=== PATIENT | male | born 1955 | race Caucasian/White ===

== ENCOUNTER 2016-12-09 09:28 | Emergency (ER) | payer OTHER ==
[~2016-12-09] VITALS: Ht 180.3 cm; Wt 72.6 kg
[2016-12-09] MEDS ORDERED: BREO ELLIPTA I1 EACH INH (09:43)
[2016-12-09] MEDS ORDERED: NOVOLOG FL100 UNIT/1 SUB-Q (09:43)
[2016-12-09] MEDS ORDERED: GLUCOPHAGE XR750 MG PO (09:44)
[2016-12-09] MEDS ORDERED: NOVOLIN N100 UNIT/1 SUB-Q (09:44)
[2016-12-09] MEDS ORDERED: LANTUS100 UNITS/ SUB-Q (10:09)
[2016-12-09] MEDS ORDERED: DIOVAN320 MG PO (10:10)
[2016-12-09] MEDS ORDERED: INVOKANA100 MG PO (10:11)
[2016-12-09] MEDS ORDERED: HYDROCHLOROTH12.5 MG PO (10:11)
[2016-12-09] MEDS ORDERED: ZITHROMAX250 MG PO (10:49)
[2016-12-09] MEDS ORDERED: PREDNISONE20 MG PO (10:49)
--- NOTE | 2016-12-10 13:01 | EKG ---
[facility] [address] [facility] [place] [address] Signed Sinus tachycardia Otherwise normal ECG No previous ECGs available Confirmed by MICHAEL TERRELL MD ([id number]) on 12/10/2016 1:01:42 PM Electronically Signed By: MICHAEL TERRELL MD 12/10/16 1301 PATIENT NAME: MAMTA CASTREJON Electrocardiogram DATE OF : 57 PHYSICIAN: MICHAEL TERRELL MD REPORT #: [id number] REPORT IS CONFIDENTIAL AND NOT TO BE RELEASED WITHOUT AUTHORIZATION
== END 2016-12-09 11:20 | disposition home or self-care (01) ==
LOC: ED 09:28
DX: J44.1 Chronic obstructive pulmonary disease with (acute) exacerbation (principal); E11.9 Type 2 diabetes mellitus without complications; F17.200 Nicotine dependence, unspecified, uncomplicated; Z79.4 Long term (current) use of insulin; Z79.899 Other long term (current) drug therapy; Z79.84 Long term (current) use of oral hypoglycemic drugs
CPT/HCPCS: 71010; 80053; 83735; 84484; 85025; 93005; 93010; 94640; 96374; 99284; J2930

== ENCOUNTER 2017-07-09 07:30 | Day surgery (SDC) | payer OTHER ==
[~2017-07-09] VITALS: Ht 180.3 cm; Wt 75.8 kg
[~2017-07-09 07:30] MED LIST: ASPIR 8181 MG PO; BREO ELLIPTA I1 EACH INH; C-10001000 MG PO; COMBIVENT RESPIM4 GM INH; DIOVAN320 MG PO; GLUCOPHAGE XR750 MG PO; GLUCOPHAGE500 MG PO; HYDROCHLOROTH12.5 M1 PO; HYDROCHLOROTH12.5 MG PO; INVOKANA100 MG PO; INVOKANA300 MG PO; L-LYSINE500 M1 PO; LANTUS100 UNITS/ SUB-Q; NORVASC5 MG PO; NOVOLIN N100 UNIT/1 SUB-Q; NOVOLOG FL100 UNIT/1 SUB-Q; NOVOLOG100 UNIT/1 SUB-Q; PREDNISONE20 MG PO; PSEUDOEPHEDRINE30 MG PO; SYMBICORT 16010.2 GM INH; TRESIBA FL100 UNIT/1 SQ; VALSARTAN320 MG PO; VENTOLIN HFA18 GM INH; ZITHROMAX250 MG PO
[2017-07-09] MEDS ORDERED: LANTUS100 UNITS/ (07:54)
[2017-07-09] MEDS ORDERED: UTIBRON (07:55)
--- NOTE | 2017-07-09 09:27 | NUR ---
07/09/17 0927 Drew He MD AT BEDSIDE REVIEWING PROCEDURE WITH PT. CONTINUES TO DENY NAUSEA OR PAIN.
--- NOTE | 2017-07-10 13:58 | OR ---
[facility] [address] [place], [place] [address] Signed DATE OF OPERATION: 07/09/2017 SURGEON: Hemal Horton MD PREOPERATIVE DIAGNOSIS: Colon screening. POSTOPERATIVE DIAGNOSES: 1. Small polyp at 25 cm (excised). 2. Internal hemorrhoids. PROCEDURE: Total colonoscopy to cecum with cold morcellation polypectomy x1. ANESTHESIA: Intravenous sedation, fentanyl 100 mcg, Versed 10 mg. INDICATION: This 62-year-old white man is a patient of Dr. Myers, formally Dr. Jimenez, who is known to have insulin-dependent diabetes mellitus. He last underwent colonoscopy in 2009. He has no symptoms currently and has no family history of colon cancer. He was admitted to undergo colonoscopy. He understands the risks of bleeding, infection, perforation. Findings of prep was good. Complete colonoscopy was undertaken of the cecum. There was a small polyp at 25 cm, which was excised with cold morcellation technique. Retroflexed view confirmed internal hemorrhoidal changes as well. DESCRIPTION OF PROCEDURE: The patient was brought to the endoscopy suite and placed in lateral decubitus position and given intravenous sedation to the point of slurred speech and nystagmus. Digital rectal examination was normal. An Olympus video colonoscope was passed in the rectum and manipulated throughout the colon ultimately intubating the cecum itself. Irrigation was undertaken as needed. The ileocecal valve and appendiceal orifice were normal. The scope was withdrawn from that point. Examination of the colon upon withdrawal of scope showed no sign of abnormality until approximately 25 cm from the anal verge where a small sessile polyp was noted. Narrow band imaging confirmed the polyp likely to be adenomatous. Multiple bites with the morcellation device were used to excise the polyp and sent for pathology. The scope was further withdrawn and retroflexed view in the rectum undertaken showing sizable internal hemorrhoidal changes, but no evidence of bleeding, fissure, or other Electronically Signed By: HEMAL HORTON MD 07/10/17 1358 PATIENT NAME: MAMTA CASTREJON OPERATIVE REPORT DATE OF : 57 REPORT #: [id number] PHYSICIAN: HEMAL HORTON MD PCP: LEFTY MYERS MD REPORT IS CONFIDENTIAL AND NOT TO BE RELEASED WITHOUT AUTHORIZATION [facility] [address] [place], [place] [address] Signed abnormality. The scope was straightened, withdrawn, and removed. The patient was taken to recovery room in good condition. CONCLUDING DIAGNOSIS: 1. Polyp at 25 cm. 2. Internal hemorrhoids. PLAN: Recommend high-fiber diet or Citrucel 1 tablespoon daily. We would recommend repeat colonoscopy in 3 years based on the polyp found, sooner if symptoms should occur. MD ONEIDA Pascal/LOAN /[id number] cc: Lefty Myers MD Copies: LEFTY MYERS MD ~ Electronically Signed By: HEMAL HORTON MD 07/10/17 1358 PATIENT NAME: MAMTA CASTREJON OPERATIVE REPORT DATE OF : 57 REPORT #: [id number] PHYSICIAN: HEMAL HORTON MD PCP: LEFTY MYERS MD REPORT IS CONFIDENTIAL AND NOT TO BE RELEASED WITHOUT AUTHORIZATION
== END 2017-07-09 09:50 | disposition home or self-care (01) ==
LOC: DS 07:30 → OPS 07:30 → DS 08:30 → OPS 08:30
PROVIDERS: Surgery
PROC: 0DBE8ZX Excision of Large Intestine, Via Natural or Artificial Opening Endoscopic, Diagnostic (ICD-10-PCS; principal; 2017-07-09 08:30)
DX: Z12.11 Encounter for screening for malignant neoplasm of colon (principal); D12.6 Benign neoplasm of colon, unspecified; K64.8 Other hemorrhoids; J44.9 Chronic obstructive pulmonary disease, unspecified; E11.9 Type 2 diabetes mellitus without complications; K21.9 Gastro-esophageal reflux disease without esophagitis; E78.00 Pure hypercholesterolemia, unspecified; Z98.890 Other specified postprocedural states; Z87.891 Personal history of nicotine dependence
CPT/HCPCS: 99153; G0500; J2250; J3010; J7120

== ENCOUNTER 2019-08-14 16:13 | Emergency (ER) | payer OTHER ==
[~2019-08-14] VITALS: Ht 180.3 cm; Wt 77.3 kg
--- OUTSIDE RECORDS SUMMARY | ~2019-08-14 | XMS | Encounter Summary ---
Demographics + + + | Address | [address] | | | [place] [address] | + + + | Home Phone | | + + + | Preferred Language | Unknown | + + + | Marital Status | Unknown | + + + | Jehovah'S Witness Affiliation | Unknown | + + + | Race | Unknown | + + + | Ethnic Group | Unknown | + + + Author + + + | Author | [facility] | | | and [place] | + + + | Organization | [facility] | | | and [place] | + + + | Address | Unknown | + + + | Phone | Unavailable | + + + Care Team Providers + +------+ + | Care Plate Drying Machine Tender Name | Role | Phone | + +------+ + PCP | Unavailable | + +------+ + Encounter Details +--------+ + + + + | Date | Type | Department | Care Team | Description | +--------+ + + + + | 05/18/ | Hospital | [facility] | Nain Amaro | | | 2011 | Encounter | MED CTR XRAY [address] | | | | | [place] | [place], [place] | | | | | [place] [address] | [id number] | | | | | [phone] | [phone] | | | | | | | | +--------+ + + + + Social History + +-------+ +--------+------+ | Tobacco Use | Types | Packs/Day | Years | Date | | | | | Used | | + +-------+ +--------+------+ | Never Assessed | | | | | + +-------+ +--------+------+ + + + | Sex Assigned at | Date Recorded | | | | + + + | Not on file | | + + + + + + + | Job Start Date | Occupation | Industry | + + + + | Not on file | Not on file | Not on file | + + + + + + + + | Travel History | Travel Start | Travel End | + + + + + + | No recent travel history available. | + + documented as of this encounter Plan of Treatment Not on filedocumented as of this encounter Procedures + +--------+ + + + | Procedure Name | Priori | Date/Time | Associated Diagnosis | Comments | | | ty | | | | + +--------+ + + + | XR CERVICAL SPINE 2 | | 05/18/2011 | | Results for this | | OR 3 VIEWS | | 2:29 PM | | procedure are in the | | | | PST | | results section. | + +--------+ + + + documented in this encounter Results XR Cervical Spine 3 Vws or Less (05/18/2011 2:29 PM PST) + + | Specimen | + + | | + + + + + | Narrative | Performed At | + + + | [facility] Diagnostic Imaging Department | [facility] | | [address] [facility] | [facility] | | CERVICAL SPINE CLINICAL | DIAG IMG | | HISTORY: NECK PAIN. FINDINGS: AP, lateral and lateral flexion | | | and extension views of the cervical spine are reviewed. Sagittal | | | alignment is normal and the spine is imaged to the C7 level. No | | | fracture or destructive charly nge is seen. The disk interspaces are | | | relatively well-maintained with just a small amount of soft ti ssue | | | calcification in the anterior longitudinal ligament at C4-5. Facet | | | joints appear normally align ed. Minimal uncinate hypertrophy is | | | suggested. A small amount of calcification is present in the ri ght | | | carotid. Alignment is maintained within the normal range in both | | | flexion and extension. IMPRESSION: 1. NO RADIOGRAPHIC | | | DEMONSTRATION OF INSTABILITY. NORMAL PLAIN FILM EVALUATION OF THE | | | CERVICAL SPINE FOR AGE. Dictated Date/Time: 05/18/2011 16:40 | | | Transcribed Date/Time: 05/18/2011 16:49 End Packer: | | | <Electronically Signed by Lorne Jackson MD> 05/18/11 2153 | | + + + + + | Procedure Note | + + | Nakul, Rad Conversion - 2013 4:38 PM [facility] | | Diagnostic Imaging Department [address] [place] [address] | | CERVICAL SPINE CLINICAL HISTORY: NECK PAIN. FINDINGS: | | AP, lateral and lateral flexion and extension views of the cervical spine are reviewed. | | Sagittal alignment is normal and the spine is imaged to the C7 level. No fracture or | | destructive change is seen. The disk interspaces are relatively well-maintained with | | just a small amount of soft tissue calcification in the anterior longitudinal ligament | | at C4-5. Facet joints appear normally aligned. Minimal uncinate hypertrophy is | | suggested. A small amount of calcification is present in the right carotid. Alignment | | is maintained within the normal range in both flexion and extension. IMPRESSION: 1. NO | | RADIOGRAPHIC DEMONSTRATION OF INSTABILITY. NORMAL PLAIN FILM EVALUATION OF THE CERVICAL | | SPINE FOR AGE. Dictated Date/Time: 05/18/2011 16:40Transcribed Date/Time: 05/18/2011 | | 16:49Transcriptionist: <Electronically Signed by Lorne Jackson MD> 05/18/11 | | 3 | |ssue calcification in the anterior longitudinal ligament at C4-5. Facet joints appear norm ally align | |ed. Minimal uncinate hypertrophy is suggested. A small amount of calcification is present in the ri | |ght carotid. | | | |Alignment is maintained within the normal range in both flexion and extension. | | | |IMPRESSION: | |1. NO RADIOGRAPHIC DEMONSTRATION OF INSTABILITY. NORMAL PLAIN FILM EVALUATION OF THE CERV ICAL SPINE | | FOR AGE. | | | |Dictated Date/Time: 05/18/2011 16:40 | |Transcribed Date/Time: 05/18/2011 16:49 | |End Packer: | |<Electronically Signed by Lorne Jackson MD> 05/18/113 | + + + +---------+ + + | Performing | Address | City/State/Zipcode | Phone Number | | Organization | | | | + +---------+ + + | [facility] | | | | | [place] | | | | + +---------+ + + documented in this encounter Visit Diagnoses Not on filedocumented in this encounter"
--- OUTSIDE RECORDS SUMMARY | ~2019-08-14 | XMS | Clinical Summary ---
Demographics + + + | Address | [address] | | | [place] [address] | + + + | Home Phone | | + + + | Preferred Language | Unknown | + + + | Marital Status | | + + + | Druze Affiliation | Unknown | + + + | Race | Unknown | + + + | Ethnic Group | Unknown | + + + Author + + + | Author | [employer] [facility] (Historical as of | | | 12-07-18) | + + + | Organization | [facility] (Historical as of | | | 12-07-18) | + + + | Address | Unknown | + + + | Phone | Unavailable | + + + Support + + +---------+ + | Name | Relationship | Address | Phone | + + +---------+ + | Tinhof,Hector | ECON | Unknown | | + + +---------+ + Care Team Providers + +------+ + | Care Environmental Health Technician Name | Role | Phone | + +------+ + | Lefty Myers MD | PP | | + +------+ + Allergies + + + + + + | Active Allergy | Reactions | Severity | Noted | Comments | | | | | Date | | + + + + + + | Atorvastatin | Muscle Pain | | 08/15/19 | | | | | | 18 | | + + + + + + | Insulin Degludec | Itching | Medium | 08/15/19 | That Tresiba | | | | | 18 | | + + + + + + Current Medications + + +-------+---------+------+------+-------+ | Prescription | Sig. | Disp. | Refills | Star | End | Statu | | | | | | t | Date | s | | | | | | Date | | | + + +-------+---------+------+------+-------+ | aspirin 81 MG EC | Take 1 tablet by | | | | | Activ | | tablet | mouth daily. | | | | | e | + + +-------+---------+------+------+-------+ | LANTUS SOLOSTAR | Inject 15 Units as | | | 04/0 | | Activ | | 100 UNIT/ML | directed daily. | | | 5/20 | | e | | injection | | | | 18 | | | + + +-------+---------+------+------+-------+ | VENTOLIN HFA 108 | Inhale 2 puffs into | | | 04/1 | | Activ | | (90 Base) MCG/ACT | the lungs every 4 | | | 5/20 | | e | | inhaler | (four) hours as | | | 18 | | | | | needed. | | | | | | + + +-------+---------+------+------+-------+ | amLODIPine | Take 5 mg by mouth | | | | | Activ | | (NORVASC) 5 MG | daily. | | | | | e | | tablet | | | | | | | + + +-------+---------+------+------+-------+ | INVOKANA 300 MG | Take 300 mg by mouth | | | 03/2 | | Activ | | tablet | daily. | | | 5/20 | | e | | | | | | 18 | | | + + +-------+---------+------+------+-------+ | ascorbic acid | Take 1,000 mg by | | | | | Activ | | (VITAMIN C) 1000 MG | mouth daily. | | | | | e | | tablet | | | | | | | + + +-------+---------+------+------+-------+ | | Take 12.5 mg by | | | 03/2 | | Activ | | hydrochlorothiazide | mouth daily. | | | 5/20 | | e | | (HYDRODIURIL) 12.5 | | | | 18 | | | | MG tablet | | | | | | | + + +-------+---------+------+------+-------+ | NOVOLOG FLEXPEN | Inject 6 Units as | | | 04/1 | | Activ | | 100 UNIT/ML | directed 3 (three) | | | 6/20 | | e | | injection | times daily. | | | 18 | | | + + +-------+---------+------+------+-------+ | metFORMIN | Take 500 mg by mouth | | | | | Activ | | (GLUCOPHAGE) 500 MG | 3 (three) times | | | | | e | | tablet | daily. | | | | | | + + +-------+---------+------+------+-------+ | Multiple | Take 1 tablet by | | | | | Activ | | Vitamins-Minerals | mouth daily. | | | | | e | | (CENTRUM SILVER) | | | | | | | | tablet | | | | | | | + + +-------+---------+------+------+-------+ | Lysine 500 MG TABS | Take 500 mg by mouth | | | | | Activ | | | daily. | | | | | e | + + +-------+---------+------+------+-------+ | SUDOGEST 12 HOUR | Take 120 mg by mouth | | 0 | 04/1 | | Activ | | 120 MG 12 hr tablet | every 12 (twelve) | | | 7/20 | | e | | | hours as needed. | | | 18 | | | + + +-------+---------+------+------+-------+ | valsartan (DIOVAN) | Take 320 mg by mouth | | | | | Activ | | 320 MG tablet | daily. | | | | | e | + + +-------+---------+------+------+-------+ | INCRUSE ELLIPTA | Inhale 1 puff into | | | 04/1 | | Activ | | 62.5 MCG/INH inhaler | the lungs daily. | | | 2/20 | | e | | | | | | 18 | | | + + +-------+---------+------+------+-------+ | | Inhale 2 puffs into | | | | | Activ | | budesonide-formotero | the lungs 2 (two) | | | | | e | | l (SYMBICORT) | times daily. | | | | | | | 160-4.5 MCG/ACT | | | | | | | | inhaler | | | | | | | + + +-------+---------+------+------+-------+ | Magnesium 250 MG | Take 250 mg by mouth | | | | | Activ | | TABS tablet | daily. | | | | | e | + + +-------+---------+------+------+-------+ | Cholecalciferol | Take 5,000 Units by | | | | | Activ | | (VITAMIN D3) 5000 | mouth daily. | | | | | e | | units CAPS | | | | | | | + + +-------+---------+------+------+-------+ Active Problems + + + | Problem | Noted Date | + + + | Tobacco abuse | | + + + | Hyperlipidemia | | + + + + + | Overview: mixed, intolerant of simvastatin and a atorvastatin | | due to myalgias | + + Family History + + +------+ + | Medical History | Relation | Name | Comments | + + +------+ + | Diabetes type I | Brother | | | + + +------+ + | Diabetes type I | Brother | | | + + +------+ + | Congestive Heart | Father | | | | Failure | | | | + + +------+ + | Coronary art dis | Father | | | + + +------+ + | Diabetes type I | Father | | | + + +------+ + | Congestive Heart | Mother | | | | Failure | | | | + + +------+ + + +------+ + + | Relation | Name | Status | Comments | + +------+ + + | Brother | | Alive | | + +------+ + + | Brother | | Alive | | + +------+ + + | Father | | | | | | | (Age | | | | | 65) | | + +------+ + + | Mother | | | | | | | (Age | | | | | 87) | | + +------+ + + | Son | | Alive | | + +------+ + + Social History + +-------+ +--------+ + | Tobacco Use | Types | Packs/Day | Years | Date | | | | | Used | | + +-------+ +--------+ + | Former Smoker | | 1.5 | 25 | Quit: 04/15/2017 | + +-------+ +--------+ + + +---+---+---+ | Smokeless Tobacco: | | | | | Former User | | | | + +---+---+---+ + + +---------+ + | Alcohol Use | Drinks/We | oz/Week | Comments | | | ek | | | + + +---------+ + | No | | | | + + +---------+ + + + + | Sex Assigned at | Date Recorded | | | | + + + | Not on file | | + + + Last Filed Vital Signs + + + + | Vital Sign | Reading | Time Taken | + + + + | Blood Pressure | 122/68 | 08/14/2017 3:08 PM PDT | + + + + | Pulse | 86 | 08/14/2017 2:49 PM PDT | + + + + | Temperature | - | - | + + + + | Respiratory Rate | - | - | + + + + | Oxygen Saturation | 97% | 08/14/2017 2:49 PM PDT | + + + + | Inhaled Oxygen | - | - | | Concentration | | | + + + + | Weight | 75.5 kg (166 lb 8 | 08/14/2017 2:49 PM PDT | | | oz) | | + + + + | Height | 177.8 cm (5' 10") | 08/14/2017 2:49 PM PDT | + + + + | Body Mass Index | 23.89 | 08/14/2017 2:49 PM PDT | + + + + Plan of Treatment + + + + + | Health Maintenance | Due Date | Last Done | Comments | + + + + + | Vaccine: | | | | | Dtap/Tdap/Td (1 - | 6 | | | | Tdap) | | | | + + + + + | Colon Cancer | | | | | Screening | 7 | | | | (Colonoscopy) | | | | + + + + + | Vaccine: Zoster (1 | | | | | of 2) | 7 | | | + + + + + | Lung Cancer | | | | | Screening | 2 | | | + + + + + | Vaccine: Influenza | | | | | (Season Ended) | 0 | | | + + + + + Results Not on filefrom Last 3 Months Insurance + +--------+ +------+-------+---------+ | Payer | Benefi | Subscriber | Type | Phone | Address | | | t Plan | ID | | | | | | / | | | | | | | Group | | | | | + +--------+ +------+-------+---------+ | COMMERCIAL OTHER | COMMER | [id number] | | | | | | CIAL | 1 | | | | | | GENERI | | | | | | | C PLAN | | | | | + +--------+ +------+-------+---------+ + +--------+ +--------+ + + | Guarantor Name | Accoun | Relation to | Date | Phone | Billing Address | | | t Type | Patient | of | | | | | | | | | | + +--------+ +--------+ + + | MAMTA CASTREJON | Person [birth year] Self [birth year] Home: | [address] | | | al/Fam | | 1956 | [phone] [place] | | | [place] | | [phone] | + +--------+ +--------+ + +
--- OUTSIDE RECORDS SUMMARY | ~2019-08-14 | XMS | Encounter Summary ---
Demographics + + + | Address | [address] | | | [place] [address] | + + + | Home Phone | | + + + | Preferred Language | Unknown | + + + | Marital Status | Unknown | + + + | Roman Catholic Affiliation | Unknown | + + + | Race | Unknown | + + + | Ethnic Group | Unknown | + + + Author + + + | Author | [facility] | | | and [facility] | + + + | Organization | [facility] | | | and [place] | + + + | Address | Unknown | + + + | Phone | Unavailable | + + + Care Team Providers + +------+ + | Care Time Stamp Assembler Name | Role | Phone | + +------+ + | Lefty Myers MD | PCP | | + +------+ + Encounter Details +--------+ + + + + | Date | Type | Department | Care Team | Description | +--------+ + + + + | 04/10/ | Orders Only | [facility] | Lefty Myers | | | 2017 | | CONVERSION [address] | [address] | | | | | [address] | [place] | | | | | [place], [place] | [place] [address] | | | | | [address] | [phone] | | | | | [phone] | | | +--------+ + + + [...] | + +--------+ + + + | ECHO INTERPRETATION | Routin | 04/10/2017 | | Results for this | | OF OUTSIDE FILMS | e | 3:22 PM | | procedure are in the | | | | PST | | results section. | + +--------+ + + + documented in this encounter Results ECHO Interpretation of Outside Films (04/10/2017 3:22 PM PST) + + | Specimen | + + | | + + + + + | Impressions | Performed At | + + + | 1. The left ventricle is normal in size, wall thickness and systolic | | | function EF 60-65%. 2. The right ventricle is mildly enlarged with | | | normal systolic function. 3. There is no pericardial effusion. | | + + + + + + | Narrative | Performed At | + + + | Patient Name: Lloyd Lowery Date of : 1955 | | | Performing Physician: Donnie Rogers | | | | | | INDICATIONS Cough, HTN CONCLUSIONS 1. | | | The left ventricle is normal in size, wall thickness and systolic | | | function EF 60-65%. 2. The right ventricle is mildly enlarged with | | | normal systolic function. 3. There is no pericardial effusion. | | | FINDINGS -------- ECG rhythm: Sinus rhythm. ECG rhythm: Frequent | | | ventricular premature beats. Study: A 2-dimensional transthoracic | | | echocardiogram with m-mode, spectral and color flow Doppler was | | | perfomed. Study: This was a technically adequate study. Left | | | Ventricle: Overall left ventricular systolic function is normal with, | | | an EF between 60 - 65 %. Left Ventricle: The left ventricle cavity | | | size is normal. Left Ventricle: Left ventricular wall thickness is | | | normal. Left Ventricle: The diastolic filling pattern indicates | | | impaired relaxation consistent with mild dysfunction (Grade I). Right | | | Ventricle: The right ventricle is mildly enlarged measuring between | | | 3.4 - 3.7 cm. Right Ventricle: The right ventricular systolic | | | function is normal. Left Atrium: The left atrium is normal in size. | | | Right Atrium: The right atrium is normal in size. Aortic Valve: The | | | aortic valve is trileaflet and appears structurally normal. Aortic | | | Valve: There is no evidence of aortic regurgitation. Aortic Valve: | | | There is no evidence of aortic stenosis. Mitral Valve: The mitral | | | valve is normal. Mitral Valve: No mitral regurgitation. Tricuspid | | | Valve: The tricuspid valve appears structurally normal. Tricuspid | | | Valve: Trace tricuspid regurgitation present. Tricuspid Valve: There | | | is no evidence of pulmonary hypertension. Tricuspid Valve: The right | | | ventricular systolic pressure (pulmonary artery systolic pressure), as | | | measured by Doppler, is 28.14mmHg. Pulmonic Valve: The pulmonic | | | valve was not well visualized. Pericardium: There is no pericardial | | | effusion. Pericardium: No pleural effusion seen. IVC/Hepatic Veins: | | | The inferior vena cava is normal in size and collapses > 50 % with | | | sniff, indicating normal central venous pressures. Aorta: The aortic | | | root, ascending aorta and aortic arch are normal in size. | | | MEASUREMENTS Ao asc: 2.79 cm IVC: 1.01 cm | | | EDV(Teich): 47.21 ml IVSd: 1.33 cm LVIDd: 3.39 cm LVPWd: | | | 1.05 cm LVOT Area: 3.79 cm2 LVOT Diam: 2.19 cm %FS: | | | 29.19 % EF(Teich): 57.18 % ESV(Teich): 20.21 ml LVIDs: | | | 2.40 cm SV(Teich): 27.00 ml RVIDd: 3.31 cm LVEF MOD A2C: | | | 59.43 % SV MOD A2C: 36.34 ml LVEF MOD A4C: 66.09 % SV MOD | | | A4C: 58.35 ml EF Biplane: 64.75 % LVEDV MOD BP: 79.42 ml | | | LVESV MOD BP: 27.99 ml LVEDV MOD A2C: 61.15 ml LVLd A2C: | | | 6.63 cm LVEDV MOD A4C: 88.29 ml LVLd A4C: 8.02 cm LVESV MOD | | | A2C: 24.80 ml LVLs A2C: 6.25 cm LVESV MOD A4C: 29.93 ml | | | LVLs A4C: 6.64 cm LAESV(A-L): 34.43 ml LAESV Index (A-L): | | | 18.21 ml/m2 LAAs A2C: 15.12 cm2 LAESV A-L A2C: 42.88 ml LALs | | | A2C: 4.52 cm LAAs A4C: 10.22 cm2 LAESV A-L A4C: 23.28 ml | | | LALs A4C: 3.81 cm RAAs: 9.85 cm2 RAESV A-L: 25.08 ml RAESV | | | MOD: 21.21 ml RALs: 3.28 cm Ao Diam: 2.95 cm LA Diam: | | | 2.81 cm LA/Ao: 0.95 TAPSE: 2.87 cm AV maxP.38 mmHg AV | | | meanP.50 mmHg AV Vmax: 1.04 m/s AV Vmean: 0.74 m/s AV | | | VTI: 16.93 cm DARIANA Vmax: 3.21 cm2 DARIANA (VTI): 3.79 cm2 AVAI | | | Vmax: 0.00 cm2/m2 AVAI (VTI): 0.00 cm2/m2 LVOT maxP.15 | | | mmHg LVOT meanP.90 mmHg LVSI Dopp: 33.97 ml/m2 LVSV | | | Dopp: 64.20 ml LVOT Vmax: 0.88 m/s LVOT Vmean: 0.65 m/s | | | LVOT VTI: 16.91 cm MV A Rich: 0.68 m/s MV DecT: 268.12 ms | | | MV E Rich: 0.71 m/s MV E/A Ratio: 1.04 MV PHT: 77.75 ms MVA | | | By PHT: 2.82 cm2 Septal e': 0.06 m/s Septal E/e': 10.85 | | | Lateral e': 0.08 m/s Lateral E/e': 8.34 PV maxP.04 mmHg | | | PV Vmax: 1.12 m/s RAP: 5 mmHg RVSP: 28.13 mmHg TR maxPG: | | | 23.13 mmHg TR Vmax: 2.40 m/s Television Cable Installer: Authenticated | | | by: Donnie Rogers Report Date/Time: 04-11-2017 6:58:22 | | + + + + + | Procedure Note | + + | Nakul, Rad Conversion - 12/12/2018 8:37 PM PDT Patient Name: Devika Lowery of | | : 1955 Performing Physician: Donnie | | [facility] INDICATIONS------ | | -----Cough, HTN CONCLUSIONS 1. The left ventricle is normal in size, wall | | thickness and systolic function EF 60-65%.2. The right ventricle is mildly enlarged with | | normal systolic function.3. There is no pericardial effusion. FINDINGS--------ECG | | rhythm: Sinus rhythm.ECG rhythm: Frequent ventricular premature beats.Study: A | | 2-dimensional transthoracic echocardiogram with m-mode, spectral and color flow Doppler | | was perfomed.Study: This was a technically adequate study.Left Ventricle: Overall left | | ventricular systolic function is normal with, an EF between 60 - 65 %.Left Ventricle: | | The left ventricle cavity size is normal.Left Ventricle: Left ventricular wall thickness | | is normal.Left Ventricle: The diastolic filling pattern indicates impaired relaxation | | consistent with mild dysfunction (Grade I).Right Ventricle: The right ventricle is | | mildly enlarged measuring between 3.4 - 3.7 cm.Right Ventricle: The right ventricular | | systolic function is normal.Left Atrium: The left atrium is normal in size.Right Atrium: | | The right atrium is normal in size.Aortic Valve: The aortic valve is trileaflet and | | appears structurally normal.Aortic Valve: There is no evidence of aortic | | regurgitation.Aortic Valve: There is no evidence of aortic stenosis.Mitral Valve: The | | mitral valve is normal.Mitral Valve: No mitral regurgitation.Tricuspid Valve: The | | tricuspid valve appears structurally normal.Tricuspid Valve: Trace tricuspid | | regurgitation present.Tricuspid Valve: There is no evidence of pulmonary | | hypertension.Tricuspid Valve: The right ventricular systolic pressure (pulmonary artery | | systolic pressure), as measured by Doppler, is 28.14mmHg.Pulmonic Valve: The pulmonic | | valve was not well visualized.Pericardium: There is no pericardial effusion.Pericardium: | | No pleural effusion seen.IVC/Hepatic Veins: The inferior vena cava is normal in size | | and collapses > 50 % with sniff, indicating normal central venous pressures.Aorta: The | | aortic root, ascending aorta and aortic arch are normal in size. | | MEASUREMENTS Ao asc: 2.79 cmIVC: 1.01 cmEDV(Teich): 47.21 mlIVSd: | | 1.33 cmLVIDd: 3.39 cmLVPWd: 1.05 cmLVOT Area: 3.79 [id number] Diam: 2.19 cm%FS: | | 29.19 %EF(Teich): 57.18 %ESV(Teich): 20.21 mlLVIDs: 2.40 cmSV(Teich): 27.00 | | mlRVIDd: 3.31 cmLVEF MOD A2C: 59.43 %SV MOD A2C: 36.34 mlLVEF MOD A4C: 66.09 %SV | | MOD A4C: 58.35 mlEF Biplane: 64.75 %LVEDV MOD BP: 79.42 mlLVESV MOD BP: 27.99 | | mlLVEDV MOD A2C: 61.15 mlLVLd A2C: 6.63 cmLVEDV MOD A4C: 88.29 mlLVLd A4C: 8.02 | | cmLVESV MOD A2C: 24.80 mlLVLs A2C: 6.25 cmLVESV MOD A4C: 29.93 mlLVLs A4C: 6.64 | | cmLAESV(A-L): 34.43 mlLAESV Index (A-L): 18.21 ml/m2LAAs A2C: 15.12 [id number] A-L | | A2C: 42.88 mlLALs A2C: 4.52 cmLAAs A4C: 10.22 [id number] A-L A4C: 23.28 mlLALs | | A4C: 3.81 cmRAAs: 9.85 [id number] A-L: 25.08 mlRAESV MOD: 21.21 mlRALs: 3.28 | | cmAo Diam: 2.95 cmLA Diam: 2.81 cmLA/Ao: 0.95TAPSE: 2.87 cmAV maxP.38 | | mmHgAV meanP.50 mmHgAV Vmax: 1.04 m/Destini Vmean: 0.74 m/Destini VTI: 16.93 cmAVA | | Vmax: 3.21 cm2AVA (VTI): 3.79 [id number] Vmax: 0.00 cm2/m2AVAI (VTI): 0.00 | | cm2/m2LVOT maxP.15 mmHgLVOT meanP.90 mmHgLVSI Dopp: 33.97 ml/m2LVSV Dopp: | | 64.20 mlLVOT Vmax: 0.88 m/sLVOT Vmean: 0.65 m/sLVOT VTI: 16.91 cmMV A Rich: | | 0.68 m/sMV DecT: 268.12 msMV E Rich: 0.71 m/sMV E/A Ratio: 1.04MV PHT: 77.75 | | msMVA By PHT: 2.82 gh5Wlirpp e': 0.06 m/sSeptal E/e': 10.85Lateral e': 0.08 | | m/sLateral E/e': 8.34PV maxP.04 mmHgPV Vmax: 1.12 m/sRAP: 5 mmHgRVSP: | | 28.13 mmHgTR maxP.13 mmHgTR Vmax: 2.40 m/s Television Cable Installer:Authenticated by: | | Donnie RogersReport Date/Time: 04-11-2017 6:58:22 IMPRESSION: 1. The left ventricle | | is normal in size, wall thickness and systolic function EF 60-65%.2. The right ventricle | | is mildly enlarged with normal systolic function.3. There is no pericardial effusion. | |Ao asc: 2.79 cm | |IVC: 1.01 cm | |EDV(Teich): 47.21 ml | |IVSd: 1.33 cm | |LVIDd: 3.39 cm | |LVPWd: 1.05 cm | |LVOT Area: 3.79 cm2 | |LVOT Diam: 2.19 cm | |%FS: 29.19 % | |EF(Teich): 57.18 % | |ESV(Teich): 20.21 ml | |LVIDs: 2.40 cm | |SV(Teich): 27.00 ml | |RVIDd: 3.31 cm | |LVEF MOD A2C: 59.43 % | |SV MOD A2C: 36.34 ml | |LVEF MOD A4C: 66.09 % | |SV MOD A4C: 58.35 ml | |EF Biplane: 64.75 % | |LVEDV MOD BP: 79.42 ml | |LVESV MOD BP: 27.99 ml | |LVEDV MOD A2C: 61.15 ml | |LVLd A2C: 6.63 cm | |LVEDV MOD A4C: 88.29 ml | |LVLd A4C: 8.02 cm | |LVESV MOD A2C: 24.80 ml | |LVLs A2C: 6.25 cm | |LVESV MOD A4C: 29.93 ml | |LVLs A4C: 6.64 cm | |LAESV(A-L): 34.43 ml | |LAESV Index (A-L): 18.21 ml/m2 | |LAAs A2C: 15.12 cm2 | |LAESV A-L A2C: 42.88 ml | |LALs A2C: 4.52 cm | |LAAs A4C: 10.22 cm2 | |LAESV A-L A4C: 23.28 ml | |LALs A4C: 3.81 cm | |RAAs: 9.85 cm2 | |RAESV A-L: 25.08 ml | |RAESV MOD: 21.21 ml | |RALs: 3.28 cm | |Ao Diam: 2.95 cm | |LA Diam: 2.81 cm | |LA/Ao: 0.95 | |TAPSE: 2.87 cm | |AV maxP.38 mmHg | |AV meanP.50 mmHg | |AV Vmax: 1.04 m/s | |AV Vmean: 0.74 m/s | |AV VTI: 16.93 cm | |DARIANA Vmax: 3.21 cm2 | |DARIANA (VTI): 3.79 cm2 | |AVAI Vmax: 0.00 cm2/m2 | |AVAI (VTI): 0.00 cm2/m2 | |LVOT maxP.15 mmHg | |LVOT meanP.90 mmHg | |LVSI Dopp: 33.97 ml/m2 | |LVSV Dopp: 64.20 ml | |LVOT Vmax: 0.88 m/s | |LVOT Vmean: 0.65 m/s | |LVOT VTI: 16.91 cm | |MV A Rich: 0.68 m/s | |MV DecT: 268.12 ms | |MV E Rich: 0.71 m/s | |MV E/A Ratio: 1.04 | |MV PHT: 77.75 ms | |MVA By PHT: 2.82 cm2 | |Septal e': 0.06 m/s | |Septal E/e': 10.85 | |Lateral e': 0.08 m/s | |Lateral E/e': 8.34 | |PV maxP.04 mmHg | |PV Vmax: 1.12 m/s | |RAP: 5 mmHg | |RVSP: 28.13 mmHg | |TR maxP.13 mmHg | |TR Vmax: 2.40 m/s | | | |Television Cable Installer: | |Authenticated by: Donnie Rogers | |Report Date/Time: 04-11-2017 6:58:22 | | | |IMPRESSION: | |1. The left ventricle is normal in size, wall thickness and systolic function EF 60-65%. | |2. The right ventricle is mildly enlarged with normal systolic function. | |3. There is no pericardial effusion. | + + documented in this encounter Visit Diagnoses Not on filedocumented in this encounter"
--- OUTSIDE RECORDS SUMMARY | ~2019-08-14 | XMS | Clinical Summary ---
Demographics + + + | Address | [address] | | | [place] [address] | + + + | Home Phone | | + + + | Preferred Language | Unknown | + + + | Marital Status | | + + + | Uatsdin Affiliation | Unknown | + + + | Race | Unknown | + + + | Ethnic Group | Unknown | + + + Author + + + | Author | [facility] (Historical as of | | | 12-07-18) | + + + | Organization | [facility] (Historical as of | | | 12-07-18) [...] Team Providers + +------+ + | Care Business Office Assistant Name | Role | Phone | + [...] +------+-------+---------+ | COMMERCIAL OTHER | COMMER | [id number] | | | | | | CIAL [...] | ira | | | [phone] | [phone] | + +--------+ +--------+ + +
--- OUTSIDE RECORDS SUMMARY | ~2019-08-14 | XMS | Encounter Summary ---
Demographics + + + | Address | [address] | | | [place] [address] | + + + | Home Phone | | + + + | Preferred Language | Unknown | + + + | Marital Status | Unknown | + + + | Restorationist Affiliation | Unknown | + + + | Race | Unknown | + + + | Ethnic Group | Unknown | + + + Author + + + | Author | [facility] | | | and [facility] | + + + | Organization | [facility] | | | and [place] | + + + | Address | Unknown | + + + | Phone | Unavailable | + + + Care Team Providers + +------+ + | Care Junior Buyer Name | Role | Phone | + [...] [address] | | | | | [place], [place] | [place] [address] | | | | | [address] | [phone] | | | | | [phone] | | | +--------+ + + + [...] | 23.13 mmHg TR Vmax: 2.40 m/s Fiber Technician: Authenticated | | | by: Donnie Rogers Report Date/Time: 04-11-2017 6:58:22 | | + + + + + | Procedure Note | + + | Nakul, Rad Conversion - 12/12/2018 8:37 PM PDT Patient Name: Devika Lowery of | | : 1955 Performing Physician: Donnie | | [facility] INDICATIONS------ | | -----Cough, HTN CONCLUSIONS 1. [...] cmLVIDd: 3.39 cmLVPWd: 1.05 cmLVOT Area: 3.79 [id number] Diam: 2.19 cm%FS: | | 29.19 %EF(Teich): [...] mlLAESV Index (A-L): 18.21 ml/m2LAAs A2C: 15.12 [id number] A-L | | A2C: 42.88 mlLALs A2C: 4.52 cmLAAs A4C: 10.22 [id number] A-L A4C: 23.28 mlLALs | | A4C: 3.81 cmRAAs: 9.85 hc5HRPBC A-L: 25.08 mlRAESV MOD: 21.21 mlRALs: 3.28 | | cmAo Diam: 2.95 cmLA Diam: 2.81 cmLA/Ao: 0.95TAPSE: 2.87 cmAV maxP.38 | | mmHgAV meanP.50 mmHgAV Vmax: 1.04 m/Destini Vmean: 0.74 m/Destini VTI: 16.93 cmAVA | | Vmax: 3.21 cm2AVA (VTI): 3.79 [id number] Vmax: 0.00 cm2/m2AVAI (VTI): 0.00 | | cm2/m2LVOT maxP.15 mmHgLVOT meanP.90 mmHgLVSI Dopp: 33.97 ml/m2LVSV Dopp: | | 64.20 mlLVOT Vmax: 0.88 m/sLVOT Vmean: 0.65 m/sLVOT VTI: 16.91 cmMV A Rich: | | 0.68 m/sMV DecT: 268.12 msMV E Rich: 0.71 m/sMV E/A Ratio: 1.04MV PHT: 77.75 | | msMVA By PHT: 2.82 [id number] e': 0.06 m/sSeptal E/e': 10.85Lateral e': 0.08 | | m/sLateral E/e': 8.34PV maxP.04 mmHgPV Vmax: 1.12 m/sRAP: 5 mmHgRVSP: | | 28.13 mmHgTR maxP.13 mmHgTR Vmax: 2.40 m/s Fiber Technician:Authenticated by: | | Donnie RogersReport Date/Time: 04-11-2017 [...] |TR Vmax: 2.40 m/s | | | |Fiber Technician: | |Authenticated by: Donnie Rogers | |Report [...]
--- OUTSIDE RECORDS SUMMARY | ~2019-08-14 | XMS | Encounter Summary ---
Demographics + + + | Address | [address] | | | [place] [address] | + + + | Home Phone | | + + + | Preferred Language | Unknown | + + + | Marital Status | Unknown | + + + | Orthodox Affiliation | Unknown | + + + | Race | Unknown | + + + | Ethnic Group | Unknown | + + + Author + + + | Author | [facility] | | | and [facility] | + + + | Organization | [facility] | | | and [place] | + + + | Address | Unknown | + + + | Phone | Unavailable | + + + Care Team Providers + +------+ + | Care Equipment Associate Name | Role | Phone | + +------+ + | Lefty Myers MD | PCP | | + +------+ + Encounter Details +--------+ + + + + | Date | Type | Department | Care Team | Description | +--------+ + + + + | 08/14/ | Orders Only | [facility] | Conversion | | | 2017 | | CONVERSION [address] | Transaction, | | | | | [address] | Provider Unknown | | | | | [place], [place] | [phone] | | | | | [address] | | | | | | [phone] | | | +--------+ + + + + Social History + +-------+ +--------+------+ | Tobacco Use | Types | Packs/Day | Years | Date | | | | | Used | | + +-------+ +--------+------+ | Former Smoker | | 1.5 | | | + +-------+ +--------+------+ + [...] Not on filedocumented as of this encounter Visit Diagnoses Not on filedocumented in this encounter"
--- OUTSIDE RECORDS SUMMARY | ~2019-08-14 | XMS | Encounter Summary ---
Demographics + + + | Address | [address] | | | [place] [address] | + + + | Home Phone | | + + + | Preferred Language | Unknown | + + + | Marital Status | Unknown | + + + | Yarsani Affiliation | Unknown | + + + | Race | Unknown | + + + | Ethnic Group | Unknown | + + + Author + + + | Author | [facility] | | | and [facility] | + + + | Organization | [facility] | | | and [place] | + + + | Address | Unknown | + + + | Phone | Unavailable | + + + Care Team Providers + +------+ + | Care Director Clinical Information Services Name | Role | Phone | + +------+ + PCP | Unavailable | + +------+ + Encounter Details +--------+ + + + + | Date | Type | Department | Care Team | Description | +--------+ + + + + | 05/18/ | Hospital | [facility] | Nain Amaro | | | 2011 | Encounter | MED CTR XRAY [address] | | | | | [place] | [place], [place] | | | | | [place] [address] | [address] | | | | | [phone] | | | | | | [...] Performed At | + + + | [facility] Diagnostic Imaging Department | [facility] | | [address] [facility] | [facility] | | CERVICAL SPINE CLINICAL | [...] | | | Transcribed Date/Time: 05/18/2011 16:49 Supervisor Post Wave: | | | <Electronically Signed by Lorne Jackson MD> 05/18/11 2153 | | + + + + + | Procedure Note | + + | Nakul, Rad Conversion - 2013 4:38 PM [facility] | | Diagnostic Imaging Department [address] [place] [address] | | CERVICAL SPINE CLINICAL HISTORY: NECK [...] 16:40 | |Transcribed Date/Time: 05/18/2011 16:49 | |Supervisor Post Wave: | |<Electronically Signed by Lorne Jackson MD> [...]
--- OUTSIDE RECORDS SUMMARY | ~2019-08-14 | XMS | Clinical Summary ---
Demographics + + + | Address | [address] | | | [place] [address] | + + + | Home Phone | | + + + | Preferred Language | Unknown | + + + | Marital Status | Unknown | + + + | Adventist Affiliation | Unknown | + + + | Race | Unknown | + + + | Ethnic Group | Unknown | + + + Author + + + | Author | [facility]ly [facility] | | | and [facility] | + + + | Organization | [facility] | | | and [place] | + + + | Address | Unknown | + + + | Phone | Unavailable | + + + Care Team Providers + +------+ + | Care Forestry Adviser Name | Role | Phone | + +------+ + | Lefty Myers MD | PCP | | + +------+ + Allergies + + + + + + | Active Allergy | Reactions | Severity | Noted | Comments | | | | | Date | | + + + + + + | Atorvastatin | Myalgia | | 08/15/19 | Muscle Pain | | | | | 18 | | + + + + + + | Insulin Degludec | Itching | Medium | 08/15/19 | That Tresiba | | | | | 18 | | + + + + + + Medications + + + +---------+------+------+-------+ | Medication | Sig | Dispensed | Refills | Star | End | Statu | | | | | | t | Date | s | | | | | | Date | | | + + + +---------+------+------+-------+ | aspirin 81 MG EC | Take 1 tablet by | | 0 | 04/2 | | Activ | | tablet | mouth daily. | | | 4/20 | | e | | | | | | 18 | | | + + + +---------+------+------+-------+ | LANTUS SOLOSTAR | Inject 15 Units as | | 0 | 04/0 | | Activ | | 100 UNIT/ML | directed daily. | | | 5/20 | | e | | injection (pen) | | | | 18 | | | + + + +---------+------+------+-------+ | VENTOLIN HFA 108 | Inhale 2 puffs into | | 0 | 04/1 | | Activ | | (90 Base) MCG/ACT | the lungs every 4 | | | 5/20 | | e | | inhaler | (four) hours as | | | 18 | | | | | needed. | | | | | | + + + +---------+------+------+-------+ | amLODIPine | Take 5 mg by mouth | | 0 | 04/2 | | Activ | | (NORVASC) 5 mg | daily. | | | 4/20 | | e | | tablet | | | | 18 | | | + + + +---------+------+------+-------+ | INVOKANA 300 MG | Take 300 mg by mouth | | 0 | 03/2 | | Activ | | tablet | daily. | | | 5/20 | | e | | | | | | 18 | | | + + + +---------+------+------+-------+ | ascorbic acid | Take 1,000 mg by | | 0 | 04/2 | | Activ | | (VITAMIN C) 1000 MG | mouth daily. | | | 4/20 | | e | | tablet | | | | 18 | | | + + + +---------+------+------+-------+ | | Take 12.5 mg by | | 0 | 03/2 | | Activ | | hydroCHLOROthiazide | mouth daily. | | | 5/20 | | e | | (HYDRODIURIL) 12.5 | | | | 18 | | | | MG tablet | | | | | | | + + + +---------+------+------+-------+ | NOVOLOG FLEXPEN | Inject 6 Units as | | 0 | 04/1 | | Activ | | 100 UNIT/ML | directed 3 (three) | | | 6/20 | | e | | injection pen | times daily. | | | 18 | | | + + + +---------+------+------+-------+ | metFORMIN | Take 500 mg by mouth | | 0 | 04/2 | | Activ | | (GLUCOPHAGE) 500 mg | 3 (three) times | | | 20 | | e | | tablet | daily. | | | 18 | | | + + + +---------+------+------+-------+ | Multiple | Take 1 tablet by | | 0 | 04/2 | | Activ | | Vitamins-Minerals | mouth daily. | | | 420 | | e | | (CENTRUM SILVER) | | | | 18 | | | | TABS | | | | | | | + + + +---------+------+------+-------+ | L-lysine 500 mg | Take 500 mg by mouth | | 0 | 04/2 | | Activ | | tablet | daily. | | | 420 | | e | | | | | | 18 | | | + + + +---------+------+------+-------+ | SUDOGEST 12 HOUR | Take 120 mg by mouth | | 0 | 04/1 | | Activ | | 120 MG 12 hr tablet | every 12 (twelve) | | | 7/20 | | e | | | hours as needed. | | | 18 | | | + + + +---------+------+------+-------+ | valsartan (DIOVAN) | Take 320 mg by mouth | | 0 | 04/2 | | Activ | | 320 MG tablet | daily. | | | 4/20 | | e | | | | | | 18 | | | + + + +---------+------+------+-------+ | INCRUSE ELLIPTA | Inhale 1 puff into | | 0 | 04/1 | | Activ | | 62.5 MCG/INH inhaler | the lungs daily. | | | 2/20 | | e | | | | | | 18 | | | + + + +---------+------+------+-------+ | | Inhale 2 puffs into | | 0 | 04/2 | | Activ | | budesonide-formotero | the lungs 2 (two) | | | 20 | | e | | l (SYMBICORT) | times daily. | | | 18 | | | | 160-4.5 mcg/puff | | | | | | | | inhaler | | | | | | | + + + +---------+------+------+-------+ | magnesium, as | Take 250 mg by mouth | | 0 | 04/2 | | Activ | | oxide, 250 MG tablet | daily. | | | 420 | | e | | | | | | 18 | | | + + + +---------+------+------+-------+ | Cholecalciferol | Take 5,000 Units by | | 0 | 04/2 | | Activ | | (VITAMIN D-3) 5000 | mouth daily. | | | 4/20 | | e | | units CAPS | | | | 18 | | | + + + +---------+------+------+-------+ Active Problems + + + | Problem [...] Comments | + + +------+ + | Diabetes, IDDM | Brother | | | + + +------+ + | Diabetes, IDDM | Brother | | | + + +------+ + | Coronary artery | Father | | | | disease | | | | + + +------+ + | Diabetes, IDDM | Father | | | + + +------+ + | Heart failure | Father | | | + + +------+ + | Heart failure | Mother | | | + + +------+ + + +------+ + + | Relation | Name | Status | Comments | + +------+ + + | Brother | | Alive | | + +------+ + + | Brother | | Alive | | + +------+ + + | Brother | | | | + +------+ + + | Brother | | | | + +------+ + + | Father | | | | | | | (Age | | | | | 65) | | + +------+ + + | Father | | | | + +------+ + + | Mother | | | | | | | (Age | | | | | 87) | | + +------+ + + | Mother | | | | + +------+ + + | Son | | Alive | | + +------+ + + Social History + +-------+ +--------+------+ [...] recent travel history available. | + + Last Filed Vital Signs + + + + + | Vital Sign | Reading | Time Taken | Comments | + + + + + | Blood Pressure | 122/68 | 08/14/2017 3:11 PM | | | | | PDT | | + + + + + | Pulse | 86 | 08/14/2017 3:11 PM | | | | | PDT | | + + + + + | Temperature | - | - | | + + + + + | Respiratory Rate | - | - | | + + + + + | Oxygen Saturation | - | - | | + + + + + | Inhaled Oxygen | - | - | | | Concentration | | | | + + + + + | Weight | 75.5 kg (166 lb 8 | 08/14/2017 3:11 PM | | | | oz) | PDT | | + + + + + | Height | 177.8 cm (5' 10") | 08/14/2017 3:11 PM | | | | | PDT | | + + + + + | Body Mass Index | 23.89 | 08/14/2017 3:11 PM | | | | | PDT | | + + + + + Plan of Treatment + + + + + | Health Maintenance | Due Date | Last Done | Comments | + + + + + | Vaccine: | | | | | Dtap/Tdap/Td (1 - | 8 | | | | Tdap) | | [...]
--- OUTSIDE RECORDS SUMMARY | ~2019-08-14 | XMS | Encounter Summary ---
Demographics + + + | Address | [address] | | | [place] [address] | + + + | Home Phone | | + + + | Preferred Language | Unknown | + + + | Marital Status | Unknown | + + + | Congregation Affiliation | Unknown | + + + | Race | Unknown | + + + | Ethnic Group | Unknown | + + + Author + + + | Author | [facility] | | | and [facility] | + + + | Organization | [facility] | | | and [place] | + + + | Address | Unknown | + + + | Phone | Unavailable | + + + Care Team Providers + +------+ + | Care Taproom Attendant Name | Role | Phone | + [...] Provider Unknown | | | | | [place], [place] | [phone] | | | | | [phone] | | | | | | [phone] | | | +--------+ + + + [...]
--- OUTSIDE RECORDS SUMMARY | ~2019-08-14 | XMS | Clinical Summary ---
Demographics + + + | Address | [address] | | | [place] [address] | + + + | Home Phone | | + + + | Preferred Language | Unknown | + + + | Marital Status | Unknown | + + + | Methodist Affiliation | Unknown | + + + | Race | Unknown | + + + | Ethnic Group | Unknown | + + + Author + + + | Author | [facility] | | | and [facility] | + + + | Organization | [facility] | | | and [place] | + + + | Address | Unknown | + + + | Phone | Unavailable | + + + Care Team Providers + +------+ + | Care Track Sweeper Name | Role | Phone | + [...]
[~2019-08-14 16:13] MED LIST changes: +LANTUS100 UNITS/; +UTIBRON
[2019-08-14] MEDS ORDERED: LOSARTAN-HCTZ1 EAC1 PO (16:34)
[2019-08-14] MEDS ORDERED: JARDIANCE10 MG PO (16:35)
[2019-08-14] MEDS ORDERED: EZETIMIBE10 MG PO (16:36)
[2019-08-14] MEDS ORDERED: GABAPENTIN300 MG PO (16:36)
[2019-08-14] MEDS ORDERED: FIASP 100100 UNIT/1 (16:38)
[2019-08-14] MEDS ORDERED: SYMBICORT 16010.2 GM INH (16:40)
--- NOTE | 2019-08-14 18:59 | EKG ---
[facility] [address] [facility] [place], [place] [address] Signed Sinus tachycardia Otherwise normal ECG When compared with ECG of 09-DEC-2016 09:34, No significant change was found Confirmed by KATI VERGARA MD ([id number]) on 08/14/2019 6:59:45 PM Electronically Signed By: KATI VERGARA MD 08/14/19 1859 PATIENT NAME: MAMTA CASTREJON ALEX Electrocardiogram DATE OF : 57 PHYSICIAN: KATI VERGARA MD REPORT #: [id number] REPORT IS CONFIDENTIAL AND NOT TO BE RELEASED WITHOUT AUTHORIZATION
== END 2019-08-14 20:20 | disposition home or self-care (01) ==
LOC: ED 16:13
DX: R55 Syncope and collapse (principal); J44.9 Chronic obstructive pulmonary disease, unspecified; E11.9 Type 2 diabetes mellitus without complications; Z87.891 Personal history of nicotine dependence; Z79.899 Other long term (current) drug therapy
CPT/HCPCS: 71045; 80053; 83880; 84443; 84484; 85025; 93005; 93010; 96360; 99284-25; G0480; J7030

== ENCOUNTER 2021-01-03 07:25 | Day surgery (SDC) | payer OTHER ==
[~2021-01-03] VITALS: Ht 180.3 cm; Wt 77.5 kg
[~2021-01-03 07:25] MED LIST changes: +EZETIMIBE10 MG PO; +FIASP 100100 UNIT/1; +GABAPENTIN300 MG PO; +JARDIANCE10 MG PO; +LOSARTAN-HCTZ1 EAC1 PO
--- NOTE | 2021-01-03 09:01 | NUR ---
01/03/21 0901 Jeri Uribe 0856- PT ARRIVES TO PACU AWAKE AND TALKING. PT REPORTS NO PAIN OR NAUSEA. RESP EVEN AND UNLABORED. OXYGEN SAT HIGH 90'S TO 100% ON 3L VIA NC. 09- OXYGEN TITRATED OFF.
--- NOTE | 2021-01-04 10:37 | OR ---
[facility] [address] [place], [place] [address] Signed DATE OF OPERATION: 01/03/2021 SURGEON: Hemal Horton MD PREOPERATIVE DIAGNOSES: 1. 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 2. Diabetes mellitus. POSTOPERATIVE DIAGNOSES: 1. Polyps x3 rectosigmoid (excised). 2. Internal hemorrhoidal changes. PROCEDURE: Total colonoscopy to cecum with cold morcellation polypectomy x3. ANESTHESIA: Intravenous sedation, fentanyl 100 mcg and Versed 7 mg. INDICATION: This 65-year-old white man has insulin-dependent diabetes mellitus and known to me from the past having undergone colonoscopy in 2018, found to have a tubular adenoma at 25 cm. He is here for surveillance colonoscopy. He is a patient of Dr. Myers. He understands the risks of bleeding, infection, and perforation related to colonoscopy and wished to proceed. FINDINGS: The prep was excellent. Complete colonoscopy was undertaken to the cecum without question. He had three small polyps in the rectosigmoid, all excised completely. Retroflexed view confirmed internal hemorrhoidal changes. There was no sign of active bleeding or thrombosis. DESCRIPTION OF PROCEDURE: The patient was brought to the endoscopy suite and placed in lateral decubitus position, given intravenous sedation to the point of slurred speech and nystagmus. Digital rectal examination was normal. An Olympus video colonoscope was passed in the rectum and manipulated throughout the colon ultimately intubating the cecum itself. The ileocecal valve and appendiceal orifice were normal. The scope was carefully passed into the ileum for a few cm and it was found to be normal. The scope was withdrawn. Careful withdrawal of scope Electronically Signed By: HEMAL HORTON MD 01/04/21 [facility] PATIENT NAME: MAMTA CASTREJON OPERATIVE REPORT DATE OF : 57 REPORT #: [id number] PHYSICIAN: HEMAL HORTON MD PCP: LEFTY MYERS MD REPORT IS CONFIDENTIAL AND NOT TO BE RELEASED WITHOUT AUTHORIZATION [facility] [address] [place] [address] Signed throughout the colon showed no sign of abnormality until approximately 12-15 cm from the anal verge, where three separate small polyps were noted. These were excised with cold morcellation technique. Retroflexed view confirmed internal hemorrhoidal changes as well. The scope was removed. The patient was taken to the recovery room in good condition. CONCLUDING DIAGNOSIS: Polyps x3. PLAN: Recommend a repeat colonoscopy in 5 years. As regards to internal hemorrhoids, I would recommend consideration for hemorrhoidal banding in the office setting if they are causing problem specifically bleeding. MD ONEIDA Pascal/LOAN /[id number] cc: Lefty Myers MD Copies: LEFTY MYERS MD ~ Electronically Signed By: HEMAL HORTON MD 01/04/21 1037 PATIENT NAME: MAMTA CASTREJON OPERATIVE REPORT DATE OF : 57 REPORT #: [id number] PHYSICIAN: HEMAL HORTON MD PCP: LEFTY MYERS MD REPORT IS CONFIDENTIAL AND NOT TO BE RELEASED WITHOUT AUTHORIZATION
--- NOTE | 2021-01-04 15:36 | PATH ---
[facility] [address] [place], [place] [address] Signed SPECIMEN(S): A COLON POLYP AT 10 CM SPECIMEN SOURCE: A. COLON POLYP AT 10 CM CLINICAL HISTORY: Colonoscopy. History of polyps. Postop: Polyps x 3, internal hemorrhoids. MICROSCOPIC DESCRIPTION: Histologic sections of all submitted blocks are examined by light microscopy. These findings, together with the gross examination, support the pathologic diagnosis. FINAL PATHOLOGIC DIAGNOSIS: Colon, 10 cm, polypectomy: - Hyperplastic polyps. BRP:cml:C2NR GROSS DESCRIPTION: The specimen, labeled "BT, 1", and designated on the requisition "colon polypectomy, 10 cm, polyps x 3," is received in formalin and consists of five fragments of pink-lange tissue (0.2-0.3 cm in greatest dimension). The specimen is submitted entirely in cassette (A1). AC (under the direct supervision of a pathologist) The Gross Description was prepared using a voice recognition system. The report was reviewed for accuracy; however, sound-alike word errors, addition and/or deletions may occur. If there is any question about this report, please contact Client Services. PERFORMING LABORATORY: The technical component was performed by [employer] [address] [place] [address] (Slab Stripper: Camryn Seo MD; CLIA# [id number]). Professional interpretation was performed by [employer], [address] [address] (CLIA# [id number]). Diagnostician: Daniel Conn MD Pathologist Electronically Signed 01/04/2021 Copies: PATIENT NAME: MAMTA CASTREJON PATHOLOGY DATE OF : 57 REPORT #: [id number] PHYSICIAN: [facility]ASITY PATHOLOGY PCP: RITA RUSH MD REPORT IS CONFIDENTIAL AND NOT TO BE RELEASED WITHOUT AUTHORIZATION [address] [address] Signed ~ PATIENT NAME: MAMTA CASTREJON PATHOLOGY DATE OF : 57 REPORT #: [id number] PHYSICIAN: CHASITY PATHOLOGY PCP: RITA RUSH MD REPORT IS CONFIDENTIAL AND NOT TO BE RELEASED WITHOUT AUTHORIZATION
== END 2021-01-03 09:26 | disposition home or self-care (01) ==
LOC: DS 07:25 → OPS 07:25 → DS 08:30 → OPS 09:26
PROVIDERS: ATTEND Surgery
PROC: 0DBN8ZX Excision of Sigmoid Colon, Via Natural or Artificial Opening Endoscopic, Diagnostic (ICD-10-PCS; principal; 2021-01-03 08:30)
DX: Z12.11 Encounter for screening for malignant neoplasm of colon (principal); K63.5 Polyp of colon; E11.9 Type 2 diabetes mellitus without complications; I10 Essential (primary) hypertension; K21.9 Gastro-esophageal reflux disease without esophagitis; J44.9 Chronic obstructive pulmonary disease, unspecified; E78.00 Pure hypercholesterolemia, unspecified; Z79.4 Long term (current) use of insulin; Z87.19 Personal history of other diseases of the digestive system
CPT/HCPCS: 99153; G0500; J2250; J3010; J7121

== ENCOUNTER 2021-02-11 17:27 | Emergency (ER) | payer OTHER ==
[~2021-02-11] VITALS: Ht 180.3 cm; Wt 74.8 kg
--- OUTSIDE RECORDS SUMMARY | 2021-02-11 17:30 | XMS ---
PreManage Notification: MAMTA CASTREJON Security [employer] Events No recent Security Events currently on file [facility] There are no care providers on record at this time. Donn has no Care Guidelines for this patient. Hailee VISIT COUNT (12 MO.) 1 LUIGI Guidry TOTAL 1 NOTE: Visits indicate total known visits. ED/C VISIT TRACKING (12 MO.) 02/11/2021 17:28 LUIGI Jack [place] TYPE: Emergency COMPLAINT: - HIGH BLOOD PRESSURE,CHEST TIGHTNESS,CHILLS INPATIENT VISIT TRACKING (12 MO.) No inpatient visits to display in this time frame [id number]
[2021-02-11] MEDS ORDERED: PREDNISONE20 MG PO (18:36)
--- NOTE | 2021-02-12 13:49 | EKG ---
[facility] [address] [facility] [place], [place] [address] Signed Sinus tachycardia Otherwise normal ECG When compared with ECG of 14-AUG-2019 16:21, No significant change was found Confirmed by MICHAEL TERRELL MD ([id number]) on 02/12/2021 1:48:53 PM Electronically Signed By: MICHAEL TERRELL MD 02/12/21 1349 PATIENT NAME: CASHMAMTA Electrocardiogram DATE OF : 57 PHYSICIAN: MICHAEL TERRELL MD REPORT #: [id number] REPORT IS CONFIDENTIAL AND NOT TO BE RELEASED WITHOUT AUTHORIZATION
== END 2021-02-11 18:50 | disposition home or self-care (01) ==
LOC: ED 17:27
DX: J44.1 Chronic obstructive pulmonary disease with (acute) exacerbation (principal); I10 Essential (primary) hypertension; E11.9 Type 2 diabetes mellitus without complications; Z87.891 Personal history of nicotine dependence; Z88.8 Allergy status to other drugs, medicaments and biological substances; Z79.899 Other long term (current) drug therapy; Z79.84 Long term (current) use of oral hypoglycemic drugs; Z79.4 Long term (current) use of insulin
CPT/HCPCS: 80053; 84484; 85025; 93005; 93010; 99285-25; J7512

== ENCOUNTER 2022-12-04 06:28 | Day surgery (SDC) | payer OTHER ==
[~2022-12-04] VITALS: Ht 180.3 cm; Wt 70.9 kg
[~2022-12-04 06:28] MED LIST changes: +BASAGLAR K100 UNIT/1 SUB-Q; +COZAAR100 MG PO; +CRESTOR5 MG PO; +FIASP 100100 UNIT/1 SUB-Q; +INDAPAMIDE2.5 MG PO; +JARDIANCE25 MG PO; +METFORMIN HCL850 MG PO; +MOMETASONE FURO15 G1 TOP; +NITROSTAT0.3 MG SL; +PEPCID40 MG PO; +PROTONIX40 MG PO
[2022-12-04 06:44] VITALS: BP 134/69
[2022-12-04] MEDS ORDERED: VITAMIN C500 M5 PO (06:53)
[2022-12-04] MEDS ORDERED: VITAMIN D3125 MC2 PO (06:54)
[2022-12-04] MEDS ORDERED: MAGNESIUM250 M2 PO (06:54)
--- NOTE | 2022-12-04 07:23 | NUR ---
PT IN OVERALL GOOD SPIRITS. CONSENTED TO PRAYER. PRAYED FOR SUCCESFUL PROCEDURE.
--- NOTE | 2022-12-04 07:58 | NUR ---
12/04/22 0758 Rhina Shen 0754-PT TO PACU IN SF POSITION. EYES CLOSED. RESPONDS TO VERBAL STIMULI. REPOSITIONS SELF IN BED. DENIES PAIN AND NAUSEA. BREATHING EASY AND UNLABORED. SPO2 >95% ON 2 L O2 VIA NC.
[2022-12-04 08:19] VITALS: BP 104/59
--- NOTE | 2022-12-04 15:17 | OR ---
[facility] [address] [place], [place] [address] Signed DATE OF OPERATION: 12/04/2022 SURGEON: Hemal Horton MD PREOPERATIVE DIAGNOSIS: Clinical gastroesophageal reflux symptoms, well managed with PPI medication. POSTOPERATIVE DIAGNOSIS: Mild distal esophagitis and poor flap valve, otherwise normal. PROCEDURE: Esophagogastroduodenoscopy with biopsy. ANESTHESIA: Intravenous sedation fentanyl 100 mcg and Versed 4 mg. INDICATION: This 67-year-old white man has insulin-dependent diabetes mellitus. He is a patient of Dr. Lefty Myers. He long-standing had symptoms of gastroesophageal reflux, but never had upper endoscopy for that in the past. He responds well to PPI medication, but upon withdrawal of his medications, symptoms promptly returned. He most recently has restarted his medication of Prilosec 20 mg daily. He was admitted at this time to undergo upper endoscopy to better characterize his situation, particularly to assess for Russell's epithelium and other findings. The risk of bleeding, infection, and perforation were reviewed with him. He understands and wished to proceed with upper endoscopy. FINDINGS: The flap valve was poor consistent with small hiatal hernia. The stomach and duodenum were normal. CLOtest was negative. There was mild distal esophagitis, but no Russell's epithelium stricture neoplasm. Mid esophagus was normal as well. PROCEDURE IN DETAIL: The patient was brought to the endoscopy suite and placed in lateral decubitus position given intravenous sedation to the point of slurred speech and nystagmus after undergoing topical hypopharyngeal lidocaine anesthesia. After satisfactory sedation, a bite block was placed. An Olympus video upper endoscope was passed in the hypopharynx. The vocal cords appeared normal. Scope was advanced to the esophagus throughout its length, it was reasonably normal although the distal portion had minimal inflammation. There was no evidence of Russell's epithelium stricture or neoplasm. There were no varices. The Electronically Signed By: HEMAL HORTON MD 12/04/22 1517 PATIENT NAME: MAMTA CASTREJON OPERATIVE REPORT DATE OF : 57 REPORT #: [id number] PHYSICIAN: HEMAL HORTON MD PCP: LEFTY MYERS MD REPORT IS CONFIDENTIAL AND NOT TO BE RELEASED WITHOUT AUTHORIZATION [facility] [address] [place], [place] [address] Signed scope was advanced to the stomach which was insufflated with air. Rugal folds were normal. Antral motility was normal. Scope was passed through the pylorus into the duodenum, which was normal. Biopsies were taken of the duodenum to assess for celiac disease and withdrawn to the distal stomach where biopsies were taken of the antrum for both YSABEL and pathologic testing. Retroflexed view was undertaken showing marginal flap valve consistent with small hiatal hernia. Scope was withdrawn and biopsies taken of the distal esophagus, which appeared mildly inflamed without Russell's epithelium or other finding. Scope was withdrawn and biopsies then taken of the midesophagus to assess for eosinophilic esophagitis. The scope was withdrawn and removed. The patient was taken to recovery room in good condition. CONCLUDING DIAGNOSIS: Mild distal esophagitis with poor flap valve consistent with hiatal hernia. PLAN: Continue PPI use is safe and effective; Prilosec 20 mg a day has been effective for melena I would recommend he continue. Alternatively, a surgical intervention to include repair of the flap valve would be a consideration. He will return to see me in approximately 6-8 weeks and we will review his pathology report, his options and his clinical course. MD ONEIDA Pascal/ANGELICAL /[id number] Copies: ~ Electronically Signed By: HEMAL HORTON MD 12/04/22 1517 PATIENT NAME: MAMTA CASTREJON OPERATIVE REPORT DATE OF : 57 REPORT #: [id number] PHYSICIAN: HEMAL HORTON MD PCP: LEFTY MYERS MD REPORT IS CONFIDENTIAL AND NOT TO BE RELEASED WITHOUT AUTHORIZATION
--- NOTE | 2022-12-06 15:19 | PATH ---
[facility] [address] [place], [place] [address] Signed SPECIMEN(S): A DUODENAL (NOS) BIOPSY SPECIMEN(S): B ANTRUM/PYLORUS BIOPSY SPECIMEN(S): C LOWER ESOPHAGEAL BIOPSY SPECIMEN(S): D MIDDLE ESOPHAGEAL BIOPSY SPECIMEN SOURCE: A. DUODENAL (NOS) BIOPSY B. ANTRUM/PYLORUS BIOPSY C. LOWER ESOPHAGEAL BIOPSY D. MIDDLE ESOPHAGEAL BIOPSY CLINICAL HISTORY: Pre-op: Reflux, epigastric and substernal pain. Post-op: Gastritis, hiatal hernia. FINAL PATHOLOGIC DIAGNOSIS: A. Duodenal biopsy: - Benign duodenal mucosa, negative for specific diagnostic abnormality. B. Antrum / pylorus biopsy: - Benign gastric-type mucosa with focal slight chronic inflammation. - Negative for evidence of Helicobacter organisms on routine HE-stained sections. C. Lower esophageal biopsy: - Benign esophageal mucosa, negative for increased epithelial eosinophils. - Negative for glandular mucosa. D. Middle esophageal biopsy: - Benign esophageal mucosa, negative for increased epithelial eosinophils. JVR:nomih:C2NR MICROSCOPIC EXAMINATION: Histologic sections of all submitted blocks are examined by light microscopy. These findings, together with the gross examination, support the pathologic diagnosis. GROSS DESCRIPTION: A. The specimen, labeled and designated "T[place]hof, duodenum biopsy," is received in formalin and consists of one lange soft tissue fragment, 0.3 cm. Entirely submitted in (A1). B. The specimen, labeled and designated "Tinhof, antrum biopsy," is received in formalin and consists of two lange soft tissue fragments, ranging from 0.2 to 0.4 cm. Entirely submitted in (B1). PATIENT NAME: MAMTA CASTREJON PATHOLOGY DATE OF : 57 REPORT #: [id number] PHYSICIAN: CHASITY CHACON PCP: RITA RUSH MD REPORT IS CONFIDENTIAL AND NOT TO BE RELEASED WITHOUT AUTHORIZATION [facility] [address] [place], [place] [address] Signed C. The specimen, labeled and designated "Tinhof, lower esophagus biopsy," is received in formalin and consists of one lange soft tissue fragment, 0.2 cm. Entirely submitted in (C1). D. The specimen, labeled and designated "Tinhof, middle esophagus biopsy," is received in formalin and consists of three lange soft tissue fragments, ranging from 0.1 to 0.2 cm. Entirely submitted in (D1). JS (under the direct supervision of a pathologist) The Gross Description was prepared using a voice recognition system. The report was reviewed for accuracy; however, sound-alike word errors, addition and/or deletions may occur. If there is any question about this report, please contact Client Services. PERFORMING LABORATORY: Technical component was performed by [facility] [address] [place] [id number] (CLIA# [id number]). Professional interpretation was performed by [facility], [address] [place] [phone] (CLIA#: [id number]). Diagnostician: Layo Jones MD Pathologist Electronically Signed 12/06/2022 Copies: ~ PATIENT NAME: MAMTA CASTREJON PATHOLOGY DATE OF : 57 REPORT #: [id number] PHYSICIAN: CHASITY PATHOLOGY PCP: RITA RUSH MD REPORT IS CONFIDENTIAL AND NOT TO BE RELEASED WITHOUT AUTHORIZATION
== END 2022-12-04 08:30 | disposition home or self-care (01) ==
LOC: DS 06:28 → OPS 06:28 → DS 07:30 → OPS 08:30
PROVIDERS: ATTEND Surgery
PROC: 0DB68ZX Excision of Stomach, Via Natural or Artificial Opening Endoscopic, Diagnostic (ICD-10-PCS; 2022-12-04)
PROC: 0DB28ZX Excision of Middle Esophagus, Via Natural or Artificial Opening Endoscopic, Diagnostic (ICD-10-PCS; 2022-12-04)
PROC: 0DB98ZX Excision of Duodenum, Via Natural or Artificial Opening Endoscopic, Diagnostic (ICD-10-PCS; principal; 2022-12-04 07:30)
DX: K21.00 Gastro-esophageal reflux disease with esophagitis, without bleeding (principal); Z86.010 Personal history of colon polyps; E11.9 Type 2 diabetes mellitus without complications; I10 Essential (primary) hypertension; J44.9 Chronic obstructive pulmonary disease, unspecified
CPT/HCPCS: 99153; G0500; J2250; J3010; J7121

== ENCOUNTER 2024-05-06 13:33 | Emergency (ER) | payer MEDICARE, OTHER ==
[~2024-05-06] VITALS: Ht 180.3 cm; Wt 66.4 kg
[~2024-05-06 13:33] MED LIST changes: +MAGNESIUM250 M2 PO; +VITAMIN C500 M5 PO; +VITAMIN D3125 MC2 PO
[2024-05-06] MEDS ORDERED: SODIUM CHLORIDE 0.9% 1,000 ML IV ONE (13:45)
[2024-05-06 13:56] LABS: HEMATOCRIT 44.3 % (35.0-50.0); HEMOGLOBIN 14.9 g/dL (12.0-18.0); MCH 28.7 (27-36); MCHC 33.6 g/dl (30-36); MCV 85.3 fl (81-99); PLATELET COUNT 407 K/uL (140-440); RBC 5.19 M/ul (4.3-5.7); RDW 14.1 (10.5-15.0)
[2024-05-06] MEDS ORDERED: IRBESARTAN300 MG PO (14:10)
[2024-05-06] MEDS ORDERED: MAGNESIUM200 MG PO (14:12)
[2024-05-06 14:13] LABS: ALBUMIN 3.9 g/dL (3.4-5.0); ALBUMIN/GLOBULIN RATIO 1.05 (1.1-2.4); ANION GAP 21.1 (7-21); BILIRUBIN, TOTAL 1.8 ng/dL (0.2-1.0); BUN/CREATININE RATIO 39.77 (6.0-28.6); CALCIUM 9.8 mg/dL (8.5-10.1); CREATININE, SERUM 0.88 mg/dL (0.70-1.30); MAGNESIUM 1.9 mg/dL (1.8-2.4); POTASSIUM 4.1 mmol/L (3.5-5.1); PROTEIN, TOTAL 7.6 g/dL (6.4-8.2)
[2024-05-06 14:14] LABS: BASOPHILS, MANUAL DIFF 3; EOSINOPHILS, MANUAL DIFF 3; LYMPHOCYTES, MANUAL DIFF 9; MONOCYTES, MANUAL DIFF 5; NEUTROPHILS, MANUAL DIFF 80
[2024-05-06 15:16] LABS: BILIRUBIN, URINE NEGATIVE (negative); BLOOD/HGB, URINE NEGATIVE (Negative); KETONE, URINE SMALL (Negative); LEUK ESTERASE, URINE NEGATIVE (negative); NITRITE, URINE NEGATIVE (negative); PH, URINE 5.5 (5-7)
[2024-05-06 16:44] VITALS: BP 155/71
--- NOTE | 2024-05-09 10:14 | EKG ---
[facility] [address] [facility] [place], [place] [address] Signed Sinus tachycardia Otherwise normal ECG When compared with ECG of 11-FEB-2021 17:33, No significant change was found Confirmed by Griffin Villarreal DO ([id number]) on 05/09/2024 10:13:49 AM Electronically Signed By: GRIFFIN VILLARREAL DO 05/09/24 1014 PATIENT NAME: MAMTA CASTREJON ALEX Electrocardiogram DATE OF : 57 PHYSICIAN: GRIFFIN VILLARREAL DO REPORT #: [id number] REPORT IS CONFIDENTIAL AND NOT TO BE RELEASED WITHOUT AUTHORIZATION
== END 2024-05-06 16:45 | disposition home or self-care (01) ==
LOC: ED 13:33
PROVIDERS: Emergency Medicine
DX: R53.1 Weakness (principal); J44.9 Chronic obstructive pulmonary disease, unspecified; E11.9 Type 2 diabetes mellitus without complications; I10 Essential (primary) hypertension; Z87.891 Personal history of nicotine dependence; Z88.8 Allergy status to other drugs, medicaments and biological substances; Z79.4 Long term (current) use of insulin; Z79.899 Other long term (current) drug therapy
CPT/HCPCS: 36415; 70450; 71045; 80053; 81003; 83735; 84484; 85025; 93005; 93010; 99284-25; J7030